=== PATIENT | female | born 1940 | race Caucasian/White ===

== ENCOUNTER → 2016-05-03 | Outpatient (CLI) | payer MEDICARE, OTHER ==
--- NOTE | 2016-05-04 11:03 | MM ---
Reason for exam: screening (asymptomatic). Last mammogram was performed 1 year and 11 months ago. History: Patient is postmenopausal. Family history of breast cancer in maternal aunt and breast cancer in aunt. Benign excisional biopsy of the left breast, 1981. Physical Findings: A clinical breast exam by your physician is recommended on an annual basis and results should be correlated with mammographic findings. MG 3D Screening Mammo W/Cad Bilateral CC and MLO view(s) were taken. Prior study comparison: June 10, 2014, bilateral MG screening mammo w CAD. June 04, 2013, bilateral digital screening mammo w/CAD. April 19, 2011, bilateral digital screening mammo w/CAD. The breast tissue is heterogeneously dense. This may lower the sensitivity of mammography. Redemonstrated bilateral nodular breast tissue. Benign vascular calcifications. No significant changes when compared with prior studies. ASSESSMENT: Negative, BI-RAD 1 RECOMMENDATION: Routine screening mammogram of both breasts in 1 year.
== END | disposition home or self-care (01) ==
LOC: RADMAMWWP 14:37
PROVIDERS: ATTEND Family Medicine
DX: Z12.31 Encounter for screening mammogram for malignant neoplasm of breast (principal)
CPT/HCPCS: 77063; G0202

== ENCOUNTER → 2019-05-04 | Outpatient (CLI) | payer MEDICARE, BC ==
--- NOTE | 2019-05-04 07:57 | US ---
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 EXAM MEASUREMENTS: Liver Length: 14.2 cm Gallbladder Wall: 0.25 cm CBD: 0.3 cm Spleen: 7.6 cm Right Kidney: 9.9 x 4.8 x 4.7 cm Left Kidney: 9.4 x 4.5 x 4.7 cm Pancreas: Obscured by bowel gas Liver: Very mildly heterogenous with slightly diminished visualization of the portal triads. Gallbladder: wnl Evidence for sonographic Barrett's sign: No CBD: wnl Spleen: wnl Right Kidney: Renal sinus cyst measuring 1.5 x 1.0 x 1.5 cm Left Kidney: Renal sinus cysts, the largest measuring 1.0 x 0.8 x 1.9 cm Upper IVC: wnl Abd Aorta: Atherosclerotic changes, no AAA visualized The liver is mildly heterogeneous. The intrahepatic portion of the IVC and proximal abdominal aorta are within normal limits. There is no evidence of cholelithiasis. Common bile duct is unremarkable. The visualized portions of the pancreas are homogenous. The spleen is unremarkable. Kidneys are s ymmetric and free of hydronephrosis. IMPRESSION: 1. Very mildly heterogenous hepatic echotexture, which can be seen in hepatic steatosis or other hepa tocellular diseases. No intrahepatic biliary ductal dilatation seen. 2. Bilateral renal sinus cysts are evident, benign. 3. Obscuration of the pancreas by overlying bowel gas.
--- NOTE | 2019-05-04 12:24 | P.STRESS ---
- Stress Test Note Stress Test Results/Findings: Exam Performed: NM stress cardiolite complete Exam Date: 05/04/19 Reason for Exam: HYPERTENSION/PALPITATIONS Height: 5 ft 1 in Weight: 206 kg Protocol: CARDIOLITE CHERY Stage: II Duration of Exercise: 4:00 Resting Heart Rate: 89 Resting Blood Pressure: 199/93 Maximum Achieved Heart Rate: 155 Maximum Achieved Blood Pressure: 236/72 85% PMHR: 122 100% PMHR: 143 METS: 5.8 Technologist Comment: Stress Test Results/Findings: This is a 79-year-old female with history of hypertension, palpitations and family history of ischemic heart disease being evaluated for cardiac status. Stress data: Baseline EKG showed sinus rhythm with normal SC interval and QRS duration. Blood pressure at rest is 199/93 with pulse rate of 89. Patient walked on the Chery protocol for about 4 minutes achieving a maximum heart rate of 155 with a blood pressure of 242/65. EKGs taken during and after exercise did not reveal any significant changes from the baseline. Patient did not experience any chest pain. Final impression: #1. Negative stress test #2 patient did not experience any chest pain #3 . No arrhythmias noted. #4. Report on the nuclear images to begin by the radiologist.
--- NOTE | 2019-05-04 12:53 | ECHOF ---
Referral Reason:R00.0 tachycardia MEASUREMENTS -------- HEIGHT: 154.9 cm WEIGHT: 93.4 kg BP: RVIDd: 3.0 cm (< 3.3) IVSd: 1.3 cm (0.6 - 1.1) LVIDd: 3.3 cm (3.9 - 5.3) LVPWd: 1.2 cm (0.6 - 1.1) IVSs: 1.6 cm LVIDs: 2.2 cm LVPWs: 1.4 cm LAESV Index (A-L): 28.61 ml/m Ao Diam: 3.2 cm (2.0 - 3.7) AV Cusp: 1.5 cm (1.5 - 2.6) LA Diam: 4.1 cm (2.7 - 3.8) MV E Danilo: 0.77 m/s MV DecT: 183 ms MV A Danilo: 1.01 m/s MV E/A Ratio: 0.76 RAP: 5.00 mmHg RVSP: 24.90 mmHg FINDINGS -------- Sinus rhythm. This was a technically adequate study. The left ventricular size is normal. There is mild concentric left ventricular hypertrophy. Overa ll left ventricular systolic function is normal with, an EF between 55 - 60 %. The diastolic fillin g pattern is normal for the age of the patient 11.71. The right ventricle is normal in size. Normal LA size by volume 22+/-6 ml/m2. The right atrial size is normal. Interatrial and interventricular septum intact. The aortic valve is trileaflet and appears structurally normal. There is mild aortic valve sclerosi s. There is no evidence of aortic regurgitation. There is no evidence of aortic stenosis. Fxxm-[id number] mitral regurgitation is present. Mild tricuspid regurgitation present. There is no evidence of pulmonary hypertension. The right v entricular systolic pressure, as measured by Doppler, is 24.90mmHg. There is no pulmonic regurgitation present. The aortic root size is normal. Normal inferior vena cava with normal inspiratory collapse consistent with estimated right atrial pre ssure of 5 mmHg. There is no pericardial effusion. CONCLUSIONS -------- 1. Sinus rhythm. 2. This was a technically adequate study. 3. The left ventricular size is normal. 4. There is mild concentric left ventricular hypertrophy. 5. Overall left ventricular systolic function is normal with, an EF between 55 - 60 %. 6. The diastolic filling pattern is normal for the age of the patient 11.71 7. The right ventricle is normal in size. 8. Normal LA size by volume 22+/-6 ml/m2. 9. The right atrial size is normal. 10. Interatrial and interventricular septum intact. 11. The aortic valve is trileaflet and appears structurally normal. 12. There is mild aortic valve sclerosis. 13. There is no evidence of aortic regurgitation. 14. There is no evidence of aortic stenosis. 15. Cwjx-xt-gpnocjnh mitral regurgitation is present. 16. Mild tricuspid regurgitation present. 17. There is no evidence of pulmonary hypertension. 18. The right ventricular systolic pressure, as measured by Doppler, is 24.90mmHg. 19. There is no pulmonic regurgitation present. 20. The aortic root size is normal. 21. Normal inferior vena cava with normal inspiratory collapse consistent with estimated right atrial pressure of 5 mmHg. 22. There is no pericardial effusion. DATABASE TESTER: Pat Mata RDCS
--- NOTE | 2019-05-04 16:43 | NM ---
EXAMINATION TYPE: NM stress cardiolite complete DATE OF EXAM: 05/04/2019 COMPARISON: NONE HISTORY: Tachycardia TECHNIQUE: After the intravenous administration of 9.25 mCi Tc 99m Sestamibi - Rest images obtained 50 minutes post injection. The patient exercised using a CHERY protocol and 1 minute prior to peak exercise was injected with 25.1 mCi Tc 99m Sestamibi - Stress images obtained 10 minutes post injecti on. FINDINGS: Targeted heart rate was achieved during performance of the study. Review of stress and rest SPECT blas ges demonstrates no distinct perfusion abnormality. Gated analysis shows normal wall motion with an estimated left ventricular ejection fraction of 60 %. IMPRESSION: No scintigraphic evidence for reversible ischemia
--- NOTE | 2019-05-05 13:07 | EST ---
Stress Test Results/Findings: Exam Performed: NM stress cardiolite complete Exam Date: 05/04/19 Reason for Exam: HYPERTENSION/PALPITATIONS Height: 5 ft 1 in Weight: 206 kg Protocol: CARDIOLITE CHERY Stage: II Duration of Exercise: 4:00 Resting Heart Rate: 89 Resting Blood Pressure: 199/93 Maximum Achieved Heart Rate: 155 Maximum Achieved Blood Pressure: 236/72 85% PMHR: 122 100% PMHR: 143 METS: 5.8 Technologist Comment: Stress Test Results/Findings: This is a 79-year-old female with history of hypertension, palpitations and family history of ischemic heart disease being evaluated for cardiac status. Stress data: Baseline EKG showed sinus rhythm with normal WV interval and QRS duration. Blood pressure at rest is 199/93 with pulse rate of 89. Patient walked on the Chery protocol for about 4 minutes achieving a maximum heart rate of 155 with a blood pressure of 242/65. EKGs taken during and after exercise did not reveal any significant changes from the baseline. Patient did not experience any chest pain. Final impression: #1. Negative stress test #2 patient did not experience any chest pain #3 . No arrhythmias noted. #4. Report on the nuclear images to be given by the radiologist. ALMA DELIA
== END | disposition home or self-care (01) ==
LOC: RADUSWWP 07:01
PROVIDERS: ATTEND Family Medicine
DX: I08.1 Rheumatic disorders of both mitral and tricuspid valves (principal); R00.0 Tachycardia, unspecified; N28.1 Cyst of kidney, acquired; R14.3 Flatulence
CPT/HCPCS: 93017; 93306; 76700; 78452; A9500

== ENCOUNTER → 2020-10-22 | Outpatient (CLI) | payer MEDICARE, BC ==
--- NOTE | 2020-10-23 10:30 | XR ---
EXAMINATION TYPE: XR thoracic spine complete DATE OF EXAM: 10/22/2020 COMPARISON: None HISTORY: Pain TECHNIQUE: Three-view thoracic spine FINDINGS: Spondylosis is present. Subtle scoliosis with convexity to the right is present within the mid thoracic spine. There are 12 thoracic type vertebral bodies. The pedicles are intact. Vertebral b lucía heights are preserved. Degenerative disc changes present throughout the thoracic spine IMPRESSION: 1. Spondylosis and minimal scoliosis thoracic spine
--- NOTE | 2020-10-23 10:59 | XR ---
EXAMINATION TYPE: XR lumbosacral spine min 4V DATE OF EXAM: 10/22/2020 COMPARISON: None HISTORY: Pain TECHNIQUE: Five-view lumbar spine FINDINGS: There are 5 lumbar-type vertebral bodies. Pedicles are intact. Subtle scoliosis with the co nvexity to the left is present. Facet degenerative changes are present. Spondylolysis of L5 on the ri ght may be present. No additional areas suspicious for spondylolysis is evident. Diffuse loss of disc height is evident through the lumbar spine. Vertebral body heights are preserved. Spondylosis is pre sent. IMPRESSION: 1. Mild degenerative disc changes diffusely through the lumbar spine. This appears greatest at L3-4. This could be further evaluated with MRI. 2. Possible right L5 spondylolysis. His could be better evaluated with CT.
== END | disposition home or self-care (01) ==
LOC: RADXRMAIN 14:18
PROVIDERS: ATTEND Family Medicine
DX: M47.814 Spondylosis without myelopathy or radiculopathy, thoracic region (principal); M51.36 Other intervertebral disc degeneration, lumbar region; M47.816 Spondylosis without myelopathy or radiculopathy, lumbar region
CPT/HCPCS: 72072; 72110

== ENCOUNTER 2021-07-27 15:47 | Emergency (ER) | payer MEDICARE, BC ==
[2021-07-27 16:03] VITALS: BP 169/83; TEMP 98.5
--- NOTE | 2021-07-27 18:04 | ED ---
SOB HPI - General Chief Complaint: Shortness of Breath Stated Complaint: Irregular lab Time Seen by Provider: 07/27/21 17:00 Source: patient, RN notes reviewed Mode of arrival: ambulatory Limitations: no limitations - History of Present Illness Initial Comments: 80-year-old female who was sent here from CAT scan after having a CAT scan of the chest done today she was found have bilateral pulmonary emboli. No evidence of right heart strain. Patient relates that she's been having exertional dyspnea for the past several weeks she also relates that she had her booster shot for COVID-19 about a week ago. No other recent illnesses no recent travel she denies any chest pain palpitations calf pain no new medication. She does states she was recently diagnosed with PMR and has been on steroids since this past March. Complaint: shortness of breath - Related Data Home Medications Medication Instructions Recorded Confirmed Atorvastatin Calcium [Lipitor] 20 mg PO DAILY 07/27/21 07/27/21 Calcium Carbonate [Calcium] 600 mg PO DAILY 07/27/21 07/27/21 Multivit-Min/Iron/Folic/Lutein 1 tab PO DAILY 07/27/21 07/27/21 [Centrum Silver Women Tablet] Pantoprazole Sodium [Protonix] 40 mg PO DAILY 07/27/21 07/27/21 Propranolol HCl [Inderal Xl] 80 mg PO DAILY 07/27/21 07/27/21 predniSONE [Deltasone] 20 mg PO DAILY 07/27/21 07/27/21 Allergies Allergy/AdvReac Type Severity Reaction Status Date / Time nickel Allergy Unknown Verified 07/27/21 18:30 Penicillins Allergy Swelling/Re Verified 07/27/21 18:30 dness Review of Systems ROS Statement: Those systems with pertinent positive or pertinent negative responses have been documented in the HPI. ROS Other: All systems not noted in ROS Statement are negative. Past Medical History Past Medical History: Hypertension Additional Past Medical History / Comment(s): GERD History of Any Multi-Drug Resistant Organisms: None Reported Past Surgical History: No Surgical Hx Reported Past Psychological History: No Psychological Hx Reported Smoking Status: Never smoker Past Alcohol Use History: None Reported Past Drug Use History: None Reported General Exam - General Exam Comments Initial Comments: this is a well-developed well-nourished awake alert oriented 3 female Limitations: no limitations General appearance: alert, in no apparent distress Head exam: Present: atraumatic, normocephalic, normal inspection Eye exam: Present: normal appearance, PERRL, EOMI. Absent: scleral icterus, conjunctival injection, periorbital swelling ENT exam: Present: normal exam, mucous membranes moist Neck exam: Present: normal inspection, full ROM, other (No sensitivity or bruits). Absent: tenderness, meningismus, lymphadenopathy Respiratory exam: Present: normal lung sounds bilaterally. Absent: respiratory distress, wheezes, rales, rhonchi, stridor Cardiovascular Exam: Present: regular rate, normal rhythm, normal heart sounds. Absent: systolic murmur, diastolic murmur, rubs, gallop, clicks GI/Abdominal exam: Present: soft, normal bowel sounds. Absent: distended, tenderness, guarding, rebound, rigid Extremities exam: Present: normal inspection, full ROM, normal capillary refill. Absent: tenderness, pedal edema, joint swelling, calf tenderness Back exam: Present: normal inspection Neurological exam: Present: alert, oriented X3, CN II-XII intact Psychiatric exam: Present: normal affect, normal mood Skin exam: Present: warm, dry, intact, normal color. Absent: rash Course Vital Signs 07/27/21 15:59 Temperature 98.5 F Pulse Rate 65 Respiratory 18 Rate Blood Pressure 169/83 O2 Sat by Pulse 98 Oximetry Medical Decision Making - Medical Decision Making I did a long discussion with the patient family she is a candidate for oral anticoagulation and home discharged she is in agreement with this. She did tolerate ambulation with no desaturation or tachycardia. I did initially discuss this with Dr. Adam covering Dr. Roldan - Lab Data Result diagrams: 07/27/21 19:17 07/27/21 19:17 Lab Results 07/27/21 07/27/21 07/27/21 Range/Units 19:17 19:17 19:17 WBC 12.3 H (3.8-10.6) k/uL RBC 4.65 (3.80-5.40) m/uL Hgb 14.2 (11.4-16.0) gm/dL Hct 42.5 (34.0-46.0) % MCV 91.5 (80.0-100.0) fL MCH 30.6 (25.0-35.0) pg MCHC 33.4 (31.0-37.0) g/dL RDW 14.2 (11.5-15.5) % Plt Count 210 (150-450) k/uL MPV 7.6 Neutrophils % 87 % Lymphocytes % 9 % Monocytes % 2 % Eosinophils % 0 % Basophils % 0 % Neutrophils # 10.8 H (1.3-7.7) k/uL Lymphocytes # 1.1 (1.0-4.8) k/uL Monocytes # 0.3 (0-1.0) k/uL Eosinophils # 0.0 (0-0.7) k/uL Basophils # 0.0 (0-0.2) k/uL PT (9.0-12.0) sec INR (<1.2) APTT (22.0-30.0) sec Sodium 136 L (137-145) mmol/L Potassium 4.4 (3.5-5.1) mmol/L Chloride 103 (98-107) mmol/L Carbon Dioxide 23 (22-30) mmol/L Anion Gap 10 mmol/L BUN 26 H (7-17) mg/dL Creatinine 0.98 (0.52-1.04) mg/dL Est GFR (CKD-EPI)AfAm 63 (>60 ml/min/1.73 sqM) Est GFR (CKD-EPI)NonAf 55 (>60 ml/min/1.73 sqM) Glucose 175 H (74-99) mg/dL Calcium 8.8 (8.4-10.2) mg/dL Total Bilirubin 1.6 H (0.2-1.3) mg/dL AST 28 (14-36) U/L ALT 21 (4-34) U/L Alkaline Phosphatase 74 (38-126) U/L Troponin I <0.012 (0.000-0.034) ng/mL Total Protein 6.2 L (6.3-8.2) g/dL Albumin 3.6 (3.5-5.0) g/dL 07/27/21 Range/Units 19:17 WBC (3.8-10.6) k/uL RBC (3.80-5.40) m/uL Hgb (11.4-16.0) gm/dL Hct (34.0-46.0) % MCV (80.0-100.0) fL MCH (25.0-35.0) pg MCHC (31.0-37.0) g/dL RDW (11.5-15.5) % Plt Count (150-450) k/uL MPV Neutrophils % % Lymphocytes % % Monocytes % % Eosinophils % % Basophils % % Neutrophils # (1.3-7.7) k/uL Lymphocytes # (1.0-4.8) k/uL Monocytes # (0-1.0) k/uL Eosinophils # (0-0.7) k/uL Basophils # (0-0.2) k/uL PT 10.3 (9.0-12.0) sec INR 0.9 (<1.2) APTT 18.8 L (22.0-30.0) sec Sodium (137-145) mmol/L Potassium (3.5-5.1) mmol/L Chloride (98-107) mmol/L Carbon Dioxide (22-30) mmol/L Anion Gap mmol/L BUN (7-17) mg/dL Creatinine (0.52-1.04) mg/dL Est GFR (CKD-EPI)AfAm (>60 ml/min/1.73 sqM) Est GFR (CKD-EPI)NonAf (>60 ml/min/1.73 sqM) Glucose (74-99) mg/dL Calcium (8.4-10.2) mg/dL Total Bilirubin (0.2-1.3) mg/dL AST (14-36) U/L ALT (4-34) U/L Alkaline Phosphatase (38-126) U/L Troponin I (0.000-0.034) ng/mL Total Protein (6.3-8.2) g/dL Albumin (3.5-5.0) g/dL - EKG Data -: EKG Interpreted by Ok EKG shows normal: sinus rhythm EKG Comments: Sinus rhythm a 61 150 QRS duration 84 daily QT/QTC 366/[address]-T wave changes - Radiology Data Radiology results: report reviewed (Imaging a report reviewed bilateral PEs), image reviewed Disposition Clinical Impression: Bilateral pulmonary embolism Disposition: HOME SELF-CARE Condition: Stable Instructions (If sedation given, give patient instructions): Pulmonary Embolism (ED) Additional Instructions: Eliquis as directed 10 mg twice a day for 1 week followed by 5 mg twice a day #42 given Is patient prescribed a controlled substance at d/c from ED?: No Referrals: Chelle Roldan III, MD [Primary Care Provider] - 1-2 days Decision Date: 07/27/21 Decision Time: 19:10
[2021-07-27 19:31] LABS: Basophils % (A) 0 %; Eosinophils % (A) 0 %; HCT 42.5 % (34.0-46.0); HGB 14.2 gm/dL (11.4-16.0); Lymphocytes # (A) 1.1 k/uL (1.0-4.8); Lymphocytes % (A) 9 %; MCH 30.6 pg (25.0-35.0); MCHC 33.4 g/dL (31.0-37.0); MCV 91.5 fL (80.0-100.0); Mean Platelet Volume 7.6; Monocytes # (A) 0.3 k/uL (0-1.0); Monocytes % (A) 2 %; Neutrophils # (A) 10.8 k/uL (1.3-7.7); Neutrophils % (A) 87 %; Platelet Count 210 k/uL (150-450); RBC 4.65 m/uL (3.80-5.40); RDW 14.2 % (11.5-15.5); WBC 12.3 k/uL (3.8-10.6)
[2021-07-27 19:36] LABS: Albumin 3.6 g/dL (3.5-5.0); Calcium 8.8 mg/dL (8.4-10.2); Potassium 4.4 mmol/L (3.5-5.1); Total Bilirubin 1.6 mg/dL (0.2-1.3); Total Protein 6.2 g/dL (6.3-8.2)
[2021-07-27 19:51] LABS: INR 0.9 (<1.2); Prothrombin Time 10.3 sec (9.0-12.0)
[2021-07-27 19:54] LABS: Partial Thromboplastin Time 18.8 sec (22.0-30.0)
[2021-07-27 20:19] VITALS: PULSE 85; RESP 20
[2021-07-27] MEDS ORDERED: APIXABAN 5 MG TAB PO STA ×2 (20:39→21:23)
== END 2021-07-27 21:39 | disposition home or self-care (01) ==
LOC: EC 15:47
DX: I26.99 Other pulmonary embolism without acute cor pulmonale (principal); I10 Essential (primary) hypertension; K21.9 Gastro-esophageal reflux disease without esophagitis; Z79.899 Other long term (current) drug therapy
CPT/HCPCS: 36415; 71275; 80053; 82565; 84484; 84520; 85025; 85610; 85730; 93005; 99285

== ENCOUNTER → 2021-07-27 | Outpatient (CLI) | payer MEDICARE, BC ==
--- NOTE | 2021-07-27 15:29 | CT ---
EXAMINATION TYPE: CT chest angio for PE DATE OF EXAM: 07/27/2021 COMPARISON: No previous CT scan is available for comparison HISTORY: elevated D-Dimer CT DLP: 414.9 mGy.cm. Automated Exposure Control for Dose Reduction was Utilized. TECHNIQUE AND CONTRAST: CTA scan of the thorax is performed with IV Contrast, patient injected with 69ml mL of Isovue 370, pu lmonary angiogram protocol. MIP Images are created on an independent workstation and reviewed. FINDINGS: Bilateral pulmonary emboli seen involving the distal aspects of the main pulmonary arteries and exten ding into the adjacent lobar, segmental and subsegmental pulmonary arteries of the left upper lobe, l ing[place], left lower lobe as well as the right upper lobe, middle lobe and right lower lobe. No pulmona ry embolism seen within the pulmonary trunk or the proximal portions of the main pulmonary arteries. The pulmonary trunk measures 2.5 cm. No gross signs of right cardiac strain. No gross cardiomegaly. Coronary and arterial atherosclerotic calcifications. Small pericardial effusi on. Scattered linear bilateral pulmonary atelectasis. Grossly unremarkable lungs otherwise. Patent ce ntral airways. No pleural effusion. No pathologically enlarged lymph nodes in the chest. Small slidin g hiatal hernia. Degenerative changes of the thoracic spine. IMPRESSION: Extensive bilateral pulmonary emboli sparing the pulmonary trunk and the proximal portions of the benny n pulmonary arteries as described above. No gross signs of right cardiac strain. Other findings as de scribed above. A [place] critical message alert has been initiated for Chelle Roldan III, MD via the [facility] Critical Results System on 07/27/2021 3:26 PM. This message alert has been sent to Chelle blair III, MD via the preferences provided by the clinician for the receipt of Radiology Critical Findin gs. Message ID [id number].
== END | disposition home or self-care (01) ==
LOC: RADCTMAIN 13:46
PROVIDERS: ATTEND Family Medicine
DX: I26.99 Other pulmonary embolism without acute cor pulmonale (principal)
CPT/HCPCS: 82565; 84520; 71275; 36415; Q9967

== ENCOUNTER → 2021-08-11 | Outpatient (CLI) | payer MEDICARE, BC ==
--- NOTE | 2021-08-11 16:48 | CT ---
EXAMINATION TYPE: CT abdomen pelvis w con DATE OF EXAM: 08/11/2021 COMPARISON: None INDICATION: low back/ pelvic pain. ovarian cyst. recent PE DLP: 1472.50 mGycm, Automated exposure control for dose reduction was used. CONTRAST: 80 mL of Isovue 300. Study performed with Oral Contrast TECHNIQUE: Axial images were obtained from above the diaphragm to the pubic rami in the axial plane a t 5 mm thick sections. Reconstructed images are reviewed on the computer in the coronal plane. FINDINGS: Limited CT sections are obtained the lung bases. The lung bases are clear. Very minimal hiatal miguel ia may be present. CT ABDOMEN: Liver: Normal Spleen: Normal Pancreas: Normal Adrenal glands: The adrenal glands are normal. Gallbladder: Normal Kidneys: No masses are evident. No hydronephrosis is present. No cysts are present. Delayed images were obtained through the kidneys, which remain unremarkable. Aorta: Vascular calcification is within the aorta. Inferior vena cava: Normal. CT PELVIS: Loops of bowel within the abdomen and pelvis are normal. Scattered diverticuli within sigmoid colon. There are loops of bowel which are incompletely distended or lack oral contrast limiting their adal luation. Appendix: Normal as visualized. Urinary bladder: Small cystocele is not excluded. Urinary bladder is otherwise unremarkable. Genitourinary structures: A 3.3 cm cyst on the left ovary. The uterus appears unremarkable. Right adn exa appears unremarkable. Osseous structures: No suspicious lytic or sclerotic lesions evident. IMPRESSIONS: 1. Left ovarian cyst measuring 3.3 cm. Follow-up ultrasound is recommended. 2. Diverticulosis without acute diverticulitis.
== END | disposition home or self-care (01) ==
LOC: RADCTMAIN 13:37
PROVIDERS: ATTEND Family Medicine
DX: N83.202 Unspecified ovarian cyst, left side (principal); K57.90 Diverticulosis of intestine, part unspecified, without perforation or abscess without bleeding; D68.69 Other thrombophilia; Z86.711 Personal history of pulmonary embolism
CPT/HCPCS: 82565; 84520; 74177; 36415; Q9967

== ENCOUNTER → 2021-10-25 | Outpatient (CLI) | payer MEDICARE, BC ==
--- NOTE | 2021-10-25 16:22 | CT ---
EXAMINATION TYPE: CT angio chest DATE OF EXAM: 10/25/2021 COMPARISON: CT 07/27/2021 HISTORY: Pulmonary Embolism CT DLP: 430.7 mGycm Automated exposure control for dose reduction was used. CONTRAST: CTA scan of the thorax is performed with IV Contrast, patient injected with 100 ML mL of Isovue 370, pulmonary embolism protocol. MIP images are created and reviewed. 3D reconstructed images are creat ed on an independent workstation and reviewed. FINDINGS: LUNGS: The lungs show a coarsened interstitium at the lung bases, nodular density is present adjacent to the fissure at the level of the left lower lobe anteriorly axial image 84 measuring only 4 mm not seen on prior exam There is no pleural effusion or pneumothorax seen. The tracheobronchial tree is patent. AORTA: No additional significant abnormality is seen. MEDIASTINUM: There is satisfactory enhancement of the pulmonary artery and its branches, there is no CT evidence for pulmonary embolism. There are no greater than 1 cm hilar or mediastinal lymph nodes. No pericardial effusion is seen. OTHER: There is reflux of contrast into the inferior vena cava which can be seen with poor right hea rt function. IMPRESSION: CORRELATE FOR POSSIBLE RIGHT HEART DYSFUNCTION SIMILAR TO PRIOR EXAM. THE PREVIOUS IDENTIFIED PULMONA RY EMBOLI ARE NO LONGER EVIDENT. INDETERMINATE NODULARITY LOWER LOBE SEEN MAY BE POSTINFLAMMATORY, CO NSIDER FOLLOW-UP
== END | disposition home or self-care (01) ==
LOC: RADCTMAIN 12:26
PROVIDERS: ATTEND Family Medicine
DX: I51.89 Other ill-defined heart diseases (principal)
CPT/HCPCS: 82565; 84520; 71275; 36415; Q9967

== ENCOUNTER → 2022-01-11 | Outpatient (CLI) | payer MEDICARE, BC ==
--- NOTE | 2022-01-11 14:23 | US ---
EXAMINATION TYPE: US venous doppler duplex LE RT DATE OF EXAM: 01/11/2022 2:10 PM COMPARISON: NONE CLINICAL HISTORY: M79.604 pain right leg, R22.41 localized swelling. Pain and warmth right lower leg for 2-3 weeks SIDE PERFORMED: Right TECHNIQUE: The lower extremity deep venous system is examined utilizing real time linear array sonog kareem with graded compression, doppler sonography and color-flow sonography. VESSELS IMAGED: Common Femoral Vein Deep Femoral Vein Greater Saphenous Vein * Femoral Vein Popliteal Vein Small Saphenous Vein * Proximal Calf Veins (* superficial vessels) Grayscale, color doppler, spectral doppler imaging performed of the deep veins of the right lower ext remity. There is normal flow, compressibility, vascular waveforms. Right Leg: No evidence of DVT as visualized IMPRESSION: No ultrasound evidence for deep venous thrombosis of the right lower extremity.
== END | disposition home or self-care (01) ==
LOC: RADUSWWP 09:35
PROVIDERS: ATTEND Family Medicine
DX: M79.604 Pain in right leg (principal); R22.41 Localized swelling, mass and lump, right lower limb

== ENCOUNTER → 2024-08-19 | Outpatient (CLI) | payer OTHER ==
--- NOTE | 2024-08-19 09:33 | MM ---
Reason for Exam: Screening (asymptomatic). Last mammogram was performed 1 year(s) and 8 month(s) ago. Patient History: Menarche at age 12. First Full-Term at age 25. Postmenopausal. Patient has history of breast feeding. 1982, Benign Excisional Biopsy on the left side. Maternal aunt had breast cancer. Maternal aunt had breast cancer. Risk Values: Adrianne 5 year model risk: 1.8%. NCI Lifetime model risk: 2.4%. Prior Study Comparison: 06/10/2014 Bilateral Screening Mammogram, [facility]. 05/03/2016 Bilateral Screening Mammogram, [facility]. 01/01/2023 Bilateral MG 3D screening mammo w/cad, [facility]. Tissue Density: The breasts are heterogeneously dense, which may obscure small masses. Findings: Analyzed By CAD. There are continued increasing benign-appearing round and vascular calcifications bilaterally redemonstrated. More indistinct calcifications subareolar region right breast noted. Overall Assessment: Incomplete: need additional imaging evaluation, BI-RAD 0 Management: Diagnostic Mammogram of the right breast. Return for spot magnification and 3-D true lateral views right breast. Patient should continue monthly self-breast exams. A clinical breast exam by your physician is recommended on an annual basis. This exam should not preclude additional follow-up of suspicious palpable abnormalities. Note on Adrianne scores and lifetime risk: 1. A Adrianne score greater than 3% is considered moderate risk. If this is the case, consider specialist referral to assess eligibility for a risk reducing agent. 2. If overall lifetime risk for the development of breast cancer is 20% or higher, the patient may qualify for future screening with alternating mammogram and breast MRI. [facility], , 08/19/2024 9:30 AM. Electronically signed and approved by: Messi Gallagher M.D.
== END | disposition home or self-care (01) ==
LOC: RADMAMWWP 09:04
PROVIDERS: ATTEND Family Medicine
DX: Z12.31 Encounter for screening mammogram for malignant neoplasm of breast (principal); R92.333 Mammographic heterogeneous density, bilateral breasts; Z78.0 Asymptomatic menopausal state; Z80.3 Family history of malignant neoplasm of breast
CPT/HCPCS: 77063; 77067

== ENCOUNTER → 2024-08-20 | Outpatient (CLI) | payer OTHER ==
--- NOTE | 2024-08-20 11:27 | MM ---
Reason for Exam: Additional evaluation requested from abnormal screening. Last screening mammogram was performed less than 1 month ago. Patient History: Menarche at age 12. First Full-Term at age 25. Postmenopausal. Patient has history of breast feeding. 1982, Benign Excisional Biopsy on the left side. Maternal aunt had breast cancer. Maternal aunt had breast cancer. Risk Values: Adrianne 5 year model risk: 1.8%. NCI Lifetime model risk: 2.4%. Tissue Density: Right: The breasts are heterogeneously dense, which may obscure small masses. Findings: Analyzed By CAD. Additional views show increasing but benign appearing round and vascular calcifications anteriorly in the right breast. No suspicious new group of microcalcification persists on additional views. Overall Assessment: Benign, BI-RAD 2 Management: Screening Mammogram of both breasts in 1 year. Return to routine follow-up. Results were given to the patient verbally at the time of exam. Patient should continue monthly self-breast exams. A clinical breast exam by your physician is recommended on an annual basis. This exam should not preclude additional follow-up of suspicious palpable abnormalities. Note on Adrianne scores and lifetime risk: 1. A Adrianne score greater than 3% is considered moderate risk. If this is the case, consider specialist referral to assess eligibility for a risk reducing agent. 2. If overall lifetime risk for the development of breast cancer is 20% or higher, the patient may qualify for future screening with alternating mammogram and breast MRI. [facility], , 08/20/2024 11:23 AM. Electronically signed and approved by: Messi Gallagher M.D.
== END | disposition home or self-care (01) ==
LOC: RADMAMWWP 10:54
PROVIDERS: ATTEND Family Medicine
DX: R92.8 Other abnormal and inconclusive findings on diagnostic imaging of breast (principal); R92.331 Mammographic heterogeneous density, right breast; Z78.0 Asymptomatic menopausal state; Z80.3 Family history of malignant neoplasm of breast
CPT/HCPCS: 77061; 77065

== ENCOUNTER → 2024-08-27 | Outpatient (CLI) | payer MEDICARE ==
[2024-08-27 19:35] LABS: Basophils # (A) 0.05 X 10*3/uL (0.00-0.10); Basophils % (A) 0.6 %; Eosinophils # (A) 1.19 X 10*3/uL (0.04-0.35); Eosinophils % (A) 14.2 %; HCT 42.6 % (37.2-46.3); HGB 13.5 g/dL (12.0-15.0); Lymphocytes # (A) 1.85 X 10*3/uL (0.90-5.00); Lymphocytes % (A) 22.1 %; MCHC 31.7 g/dL (32.0-37.0); MCV 91.6 FL (80.0-97.0); Mean Platelet Volume 9.7 FL (9.5-12.2); Monocytes # (A) 0.43 X 10*3/uL (0.20-1.00); Monocytes % (A) 5.1 %; NRBC Per 100 WBC 0 X 10*3/uL (0.00-0.01); Neutrophils # (A) 4.83 X 10*3/uL (1.80-7.70); Neutrophils % (A) 57.8 %; Platelet Count 280 X 10*3/uL (140-440); RBC 4.65 X 10*6/uL (4.10-5.20); RDW 12.7 % (11.5-14.5); WBC 8.37 X 10*3/uL (4.50-10.00)
[2024-08-27 20:41] LABS: ALT 14 U/L (8-44); AST 24 U/L (13-35); Alkaline Phosphatase 107 U/L (41-126); Blood Urea Nitrogen 19.9 mg/dL (9.0-27.0); Calcium 9.5 mg/dL (8.7-10.3); Carbon Dioxide 25.8 mmol/L (21.6-31.8); Chloride 104 mmol/L (96-109); Glucose 105 mg/dL (70-110); Potassium 4.5 mmol/L (3.5-5.5); Sodium 141 mmol/L (135-145); Total Bilirubin 1.5 mg/dL (0.3-1.2)
== END | disposition home or self-care (01) ==
LOC: LABWHC1 11:37
PROVIDERS: ATTEND Family Medicine
DX: I10 Essential (primary) hypertension (principal)
CPT/HCPCS: 36415; 80053; 85025